=== PATIENT | female | born 1980 | race Caucasian/White ===

== ENCOUNTER 2017-01-23 09:17 | Emergency (ER) | payer BC | END 2017-01-23 12:05 | disposition home or self-care (01) | LOC: ER1 09:17 | DX: S62.645A Nondisplaced fracture of proximal phalanx of left ring finger, initial encounter for closed fracture (principal); W23.0XXA Caught, crushed, jammed, or pinched between moving objects, initial encounter; Y93.67 Activity, basketball; Y99.8 Other external cause status | CPT/HCPCS: 29130; 73130; 99283 ==

== ENCOUNTER → 2020-12-29 | Outpatient (CLI) | payer BC | LOC: HEART 5 15:30 | DX: R07.9 Chest pain, unspecified (principal); Z86.16 Personal history of COVID-19 | CPT/HCPCS: 93306 ==

== ENCOUNTER → 2021-09-29 | Outpatient (CLI) | payer BC | LOC: KOH-I 13:04 | DX: M54.2 Cervicalgia (principal); M62.838 Other muscle spasm | CPT/HCPCS: 72040 ==

== ENCOUNTER → 2022-01-21 | Outpatient (CLI) | payer BC | LOC: RT 08:50 | DX: R00.2 Palpitations (principal) | CPT/HCPCS: 93005 ==

== ENCOUNTER → 2022-01-28 | Outpatient (CLI) | payer BC | LOC: EXRD 08:00 | DX: R74.01 Elevation of levels of liver transaminase levels (principal); K76.0 Fatty (change of) liver, not elsewhere classified | CPT/HCPCS: 76705 ==